=== PATIENT | female | born 1960 | race Caucasian/White ===

== ENCOUNTER 2017-03-19 16:15 | Inpatient (IN) | payer BC ==
[2017-03-19 17:10] VITALS: BMI 32.4
[2017-03-29] MEDS ORDERED: Sodium Chloride 0.9% 10 ML ONE (06:46)
[2017-03-29] MEDS ORDERED: Bacitracin Zinc Ointment 30 gm TUBE ONE (06:46)
[2017-03-29] MEDS ORDERED: Clindamycin/D5W 900 mg/50 ml Premix Bag ONE (06:53)
[2017-03-29] MEDS ORDERED: Levofloxacin 500 mg/D5W 100 ml Premix Bag ONE (06:53)
[2017-03-29] MEDS ORDERED: Fentanyl 250 MCG/5 ML VIAL ONE (07:38)
[2017-03-29] MEDS ORDERED: Midazolam HCl 2 mg/2 ml Vial ONE (07:48)
[2017-03-29] MEDS ORDERED: Propofol 200 MG/20 ML VIAL ONE (08:17)
[2017-03-29] MEDS ORDERED: Dexamethasone 20 MG/5 ML VIAL ONE (08:17)
[2017-03-29] MEDS ORDERED: Ondansetron HCl/PF 4 MG/2 ML Vial ONE (08:17)
[2017-03-29] MEDS ORDERED: PHENYLEPHRINE-NS 100 MCG/ML 10 ML SYRINGE ONE (08:17)
[2017-03-29] MEDS ORDERED: Fentanyl 100 MCG/2 ML VIAL ONE ×3 (09:30→10:11)
--- NOTE | 2017-03-29 11:23 | OP ---
DATE OF SURGERY: 03/29/2017 SURGEON: Ruslan Hart M.D. REGIONAL AGRONOMIST: Ismael Alcala PROCEDURE: Removal of hardware, C5-6; exploration of spinal fusion, C5-6; interbody arthrodesis, C4 -5; demineralized bone matrix; local morselized autograft; intravertebral biomechanical device, C4-5 ; anterior titanium instrumentation, C4-5. PROCEDURE IN DETAIL: The patient was brought into the operating room, intubated. She was positione d supine with the head in modest extension on a gel-filled donut. The previous incision was reopene d and we dissected down to the previous plate. This was removed without difficulty and the fusion e xplored and found to be solid. We next placed distraction across C4-5, debrided the intravertebral disc, completely decompressed the neural elements. The bony endplates were decorticated for the pur pose of arthrodesis and appropriately sized intravertebral biomechanical. PEEK device was brought i nto the field, filled with demineralized bone matrix and local morselized autograft, and tapped into place securely at C4-5. Next, an anterior plate was brought in the field and secured to C4 and C5 using two 14 mm screws at each level. The wound was then extensively irrigated, immaculate hemostas is was secured, and then wound was closed in anatomic layers.
[2017-03-29] MEDS ORDERED: Promethazine HCl 25 MG/ML VIAL ONE (12:02)
== END 2017-03-29 13:28 | disposition home or self-care (01) | DRG 473 ==
LOC: SURG A 03-29 06:24
PROVIDERS: ADMIT Neurological Surgery; ATTEND Neurological Surgery
PROC: 0RG10A0 Fusion of Cervical Vertebral Joint with Interbody Fusion Device, Anterior Approach, Anterior Column, Open Approach (ICD-10-PCS; principal; 2017-03-29)
PROC: 0PP304Z Removal of Internal Fixation Device from Cervical Vertebra, Open Approach (ICD-10-PCS; 2017-03-29)
DX: M47.22 Other spondylosis with radiculopathy, cervical region (principal); Z88.0 Allergy status to penicillin
CPT/HCPCS: 76001; 96374; A4216; C1713; J1100; J1956; J2250; J2405; J2550; J2704; J3010; J3490

== ENCOUNTER 2017-03-19 16:17 | Outpatient (CLI) | payer BC ==
[2017-03-19 16:49] LABS: Mean Platelet Volume 5.9 fL (7.4-10.4); Red Blood Cell (RBC) Count 4.31 mill/uL (4.20-5.40); White Blood Cell (WBC) Count 6.5 thou/uL (4.8-10.8)
[2017-03-19 17:37] LABS: Anion Gap 11 mmol/L (10-20); BUN (Urea Nitrogen) 17 mg/dL (9.8-20.1); Calc. Creatinine Clearance 0 mL/min (70-130); Calcium 9.4 mg/dL (7.8-10.44); Carbon Dioxide 24 mmol/L (22-29); Chloride 106 mmol/L (98-107); Estimated GFR-MDRD 76
--- NOTE | 2017-05-07 09:54 | EKG ---
Test Reason : Blood Pressure : / mmHG Vent. Rate : 077 BPM Atrial Rate : 077 BPM P-R Int : 128 ms QRS Dur : 082 ms QT Int : 370 ms P-R-T Axes : 026 084 023 degrees QTc Int : 418 ms Normal sinus rhythm Low voltage QRS Borderline ECG When compared with ECG of 13-NOV-2011 16:18, No significant change was found Confirmed by DR. Chiqui HAIRSTON ([id number]) on 05/07/2017 9:54:29 AM Referred By: COMPA Confirmed By:DR. Chiqui HAIRSTON
== END 2017-03-19 16:18 | disposition home or self-care (01) ==
LOC: LABBT 16:17
PROVIDERS: ATTEND Neurological Surgery
DX: Z01.818 Encounter for other preprocedural examination (principal); M54.12 Radiculopathy, cervical region
CPT/HCPCS: 80048; 85027; 93005; 93010

== ENCOUNTER 2017-04-13 14:48 | Outpatient (CLI) | payer BC ==
--- NOTE | 2017-04-13 18:14 | RAD ---
CERVICAL SPINE: 04/13/17 Three views. HISTORY: Postop followup. Anterior plate and screws transfix C4-5. Disc implants are seen at C4-5 and C5-6. There has been prio r fusion at C5-6. Vertebral body height and alignment is maintained. Mild degenerative change. IMPRESSION: Postoperative changes of cervical spine as described. POS: [facility]
== END 2017-04-13 14:49 | disposition home or self-care (01) ==
LOC: TBSIIMAG 14:48
PROVIDERS: ATTEND Physician Assistant
DX: M54.2 Cervicalgia (principal); Z98.890 Other specified postprocedural states
CPT/HCPCS: 72040

== ENCOUNTER 2017-06-02 15:51 | Outpatient (CLI) | payer OTHER ==
--- NOTE | 2017-06-02 16:08 | RAD ---
CERVICAL SPINE TWO VIEW 06/02/17 HISTORY: M54.2 - neck pain. COMPARISON: Cervical spine radiograph 04/13/17. FINDINGS: The open mouth odontoid view is normal. Normal C1-2 articulation. C4-5 ACDF hardware is intact. No mancilla rdware complication. Adequate osseous incorporation of C5-6 disc cage. IMPRESSION: No evidence for hardware failure. POS: [facility]
== END 2017-06-02 15:52 | disposition home or self-care (01) ==
LOC: TBSIIMAG 15:51
PROVIDERS: ATTEND Neurological Surgery
DX: M54.2 Cervicalgia (principal)
CPT/HCPCS: 72040

== ENCOUNTER 2017-12-13 09:41 | Outpatient (CLI) | payer OTHER | END 2017-12-13 09:42 | disposition home or self-care (01) | LOC: BICMAMMO 09:41 | PROVIDERS: ATTEND Obstetrics & Gynecology | DX: Z12.31 Encounter for screening mammogram for malignant neoplasm of breast (principal) | CPT/HCPCS: 77063; 77067 ==

== ENCOUNTER 2022-06-29 15:50 | Outpatient (CLI) | payer BC, OTHER ==
[2022-06-29 16:42] LABS: Hemoglobin 12.7 g/dL (12.0-15.5); Mean Corpuscular HGB CONC 33.4 g/dL (32.0-36.0); Mean Corpuscular Hemoglobin 29.3 pg (27.0-33.0); Mean Corpuscular Volume 87.6 fl (81.6-98.3); Mean Platelet Volume 8.5 fl (7.4-10.4); Platelet Count 328 10x3/uL (150-450); RBC Distribution Width 12.9 % (11.5-14.5); Red Blood Cell (RBC) Count 4.34 10x6/uL (3.90-5.03); White Blood Cell (WBC) Count 7.4 10x3/uL (3.5-10.5)
[2022-06-29 16:58] LABS: INR-International Normal Ratio 0.9; PTT 25.5 sec (22.0-33.0); Prothrombin Time 9.7 sec (9.5-12.1)
[2022-06-29 17:02] LABS: Anion Gap 11 mmol/L (10-20); BUN (Urea Nitrogen) 14 mg/dL (9.8-20.1); Calc. Creatinine Clearance 0 mL/min (70-130); Calcium 9.7 mg/dL (7.8-10.44); Carbon Dioxide 26 mmol/L (22-29); Chloride 103 mmol/L (98-107); Estimated GFR 86; Glucose 85 mg/dL (70-105); Potassium 4.1 mmol/L (3.5-5.1); Sodium 136 mmol/L (136-145)
== END 2022-06-29 15:51 | disposition home or self-care (01) ==
LOC: LABBT 15:50
PROVIDERS: ATTEND Internal Medicine Cardiovascular Disease
DX: Z01.812 Encounter for preprocedural laboratory examination (principal); I47.1 Supraventricular tachycardia
CPT/HCPCS: 80048; 85027; 85610; 85730

== ENCOUNTER 2022-07-03 06:54 | Day surgery (SDC) | payer BC ==
[2022-07-02 09:17] VITALS: BMI 35.2
[2022-07-03] MEDS ORDERED: Protamine Sulfate 50 MG/5 ML VIAL ONE (07:00)
[2022-07-03] MEDS ORDERED: Heparin 10,000 UNITS/ 10 ML VIAL ONE (07:00)
[2022-07-03] MEDS ORDERED: Lidocaine 1% (PF) 30 ML VIAL ONE (07:01)
[2022-07-03] MEDS ORDERED: Isoproterenol 0.2 MG/1 ML AMP ONE (07:01)
[2022-07-03] MEDS ORDERED: Ondansetron PF 4 MG/2 ML Vial ONE (09:13)
[2022-07-03] MEDS ORDERED: Dexamethasone 20 MG/5 ML VIAL ONE (09:13)
[2022-07-03] MEDS ORDERED: PROPOFOL 200 MG/20 ML VIAL ONE (09:13)
[2022-07-03] MEDS ORDERED: Lidocaine 1% PF 5 ML VIAL ONE (09:13)
[2022-07-03] MEDS ORDERED: PROPOFOL 20 ML ONE (09:29)
[2022-07-03] MEDS ORDERED: FENTANYL 50 MCG/ML 1 ML VIAL ONE (09:29)
== END 2022-07-03 14:50 | disposition home or self-care (01) ==
LOC: SDC 06:54
PROVIDERS: ATTEND Internal Medicine Cardiovascular Disease
PROC: 02K83ZZ Map Conduction Mechanism, Percutaneous Approach (ICD-10-PCS; principal; 2022-07-03)
PROC: 4A0234Z Measurement of Cardiac Electrical Activity, Percutaneous Approach (ICD-10-PCS; principal; 2022-07-03)
PROC: 4A023FZ Measurement of Cardiac Rhythm, Percutaneous Approach (ICD-10-PCS; principal; 2022-07-03)
PROC: 02583ZZ Destruction of Conduction Mechanism, Percutaneous Approach (ICD-10-PCS; principal; 2022-07-03)
DX: I47.1 Supraventricular tachycardia (principal); E78.2 Mixed hyperlipidemia; Z87.891 Personal history of nicotine dependence; Z79.82 Long term (current) use of aspirin; Z79.890 Hormone replacement therapy; Z79.899 Other long term (current) drug therapy; Z88.0 Allergy status to penicillin; Z95.818 Presence of other cardiac implants and grafts
CPT/HCPCS: 93005; 93623; 93653; C1730; C1732; C1760; C1769; C1894; C2630; J1100; J1644; J2001; J2405; J2704; J2720; J3010

== ENCOUNTER 2022-08-25 14:58 | Outpatient (CLI) | payer BC | END 2022-08-25 14:59 | disposition home or self-care (01) | LOC: SCSMRI 14:58 | PROVIDERS: ATTEND Family Medicine | DX: M47.26 Other spondylosis with radiculopathy, lumbar region (principal); M51.16 Intervertebral disc disorders with radiculopathy, lumbar region; M47.817 Spondylosis without myelopathy or radiculopathy, lumbosacral region | CPT/HCPCS: 72100; 72148 ==

== ENCOUNTER 2023-01-13 07:31 | Outpatient (CLI) | payer BC | END 2023-01-13 07:32 | disposition home or self-care (01) | LOC: SCSMRI 07:31 | PROVIDERS: ATTEND Neurological Surgery | DX: M25.552 Pain in left hip (principal); M79.605 Pain in left leg; M79.18 Myalgia, other site; S76.812A Strain of other specified muscles, fascia and tendons at thigh level, left thigh, initial encounter | CPT/HCPCS: 72170 ==